=== PATIENT | male | born 1995 | race Asian ===

== ENCOUNTER 2023-06-13 11:08 | Emergency (ER) | payer OTHER ==
[~2023-06-13] VITALS: Ht 177.8 cm; Wt 68.0 kg
[2023-06-13 11:16] VITALS: BP 142/88; RESP 20; TEMP 98.1; O2SAT 97
[2023-06-13 11:18] VITALS: PULSE 105
== END 2023-06-13 12:33 | disposition home or self-care (01) ==
LOC: ER 11:08
DX: N43.2 Other hydrocele (principal); N50.812 Left testicular pain
CPT/HCPCS: 76870; 93976; 99284